=== PATIENT | male | born 1940 | race Caucasian/White ===

== ENCOUNTER 2016-10-01 15:27 | Inpatient (IN) | payer MEDICARE, BC ==
[2016-10-01] MEDS ORDERED: SODIUM CHLORIDE 0.9% IV STA (15:54)
[2016-10-01] MEDS ORDERED: ACYCLOVIR IV STA (15:54)
[2016-10-01] MEDS ORDERED: cefTRIAXone IV 1 gm in Dextros 50 ML IVPB ONE (16:10)
[2016-10-01] MEDS ORDERED: Vancomycin 1 GM 1 GM/250 ML BAG IVPB ONE (16:10)
--- NOTE | 2016-10-01 16:15 | C.PDOC ---
History Of Present Illness 75-year-old male, presents to the emergency department with complaints rash to upper forehead that started several days ago. Patient was seen by PMD who prescribed Valtrex, that he is taking without improvement, Patient also notes mild associated periorbital swelling. Denies fevers, nausea/vomiting or other complaints at this time. Time Seen by Provider: 10/01/16 15:38 Chief Complaint (Nursing): Eye Problem History Per: Patient History/Exam Limitations: no limitations Onset/Duration Of Symptoms: Days Past Medical History Reviewed: Historical Data, Nursing Documentation, Vital Signs Vital Signs: Last Vital Signs Temp 99.1 F 10/01/16 15:56 Pulse 92 H 10/01/16 15:56 Resp 20 10/01/16 15:56 BP 144/89 10/01/16 15:56 Pulse Ox 97 10/01/16 19:49 - Medical History PMH: HTN, Hypercholesterolemia Surgical History: Appendectomy Family History: States: No Known Family Hx - Social History Hx Alcohol Use: Yes Hx Substance Use: No - Immunization History Hx Tetanus Toxoid Vaccination: No Hx Influenza Vaccination: No Hx Pneumococcal Vaccination: Yes (04/2016) Review Of Systems Except As Marked, All Systems Reviewed And Found Negative. Constitutional: Negative for: Fever Gastrointestinal: Negative for: Nausea, Vomiting Skin: Positive for: Rash Physical Exam - Physical Exam Appears: Non-toxic, No Acute Distress Skin: Warm, Dry, Rash, Other (there is a vesicular rash w/ generalized distribution to right forehead) Nose: Normal Oral Mucosa: Moist Lips: Normal Appearing Neck: Normal ROM Cardiovascular: Rhythm Regular, No Murmur Respiratory: Normal Breath Sounds, No Accessory Muscle Use Extremity: Normal ROM Neurological/Psych: Oriented x3, Normal Speech ED Course And Treatment - Laboratory Results Result Diagrams: 10/01/16 16:14 10/01/16 16:14 O2 Sat by Pulse Oximetry: 97 Medical Decision Making Medical Decision Making: pt with periorbital cellultis, failue of outpt treatment. r/o orbital extention 746: labs unremakralbe. ct shows periorbital cellultis, no orbital extension. as pt failing outpt tx. will admit for iv acyclovira, and iv antibiotcs. dr pineda accepts, requests dr juarez on consult. case discussed with dr juarez Disposition - Disposition Disposition: HOSPITALIZED Disposition Time: 19:47 Condition: STABLE - Clinical Impression Clinical Impression: Periorbital cellulitis, Herpes zoster - Scribe Statement The provider has reviewed the documentation as recorded by the Scribe (Saad Mullins) All medical record entries made by the Scribe were at my direction and personally dictated by me. I have reviewed the chart and agree that the record accurately reflects my personal performance of the history, physical exam, medical decision making, and the department course for this patient. I have also personally directed, reviewed, and agree with the discharge instructions and disposition. Decision To Admit - Pt Status Changed To: Hospital Disposition Of: Inpatient - Admit Certification Admit to Inpatient:: After my assessment, the patient will require hospitalization for at least two midnights. This is because of the severity of symptoms shown, intensity of services needed, and/or the medical risk in this patient being treated as an outpatient. - InPatient: Physician Admission Certification: I certify that this patient requires 2 or more midnights of care for the following reason:: failure of outpt, needs iv antibiotics, signficant swelling, erythema - . Bed Request Type: Regular Admitting Physician: Sarina Pineda Patient Diagnosis: Periorbital cellulitis, Herpes zoster
[2016-10-01 16:21] LABS: BASO % 0.4 % (0.0-2.0); EOS # 0.1 K/uL (0.0-0.7); EOS % 0.7 % (0.0-4.0); HEMOGLOBIN 15.8 g/dL (12.0-18.0); LYMPH # 3.2 K/uL (1.0-4.3); LYMPH % 36.8 % (20.0-40.0); MEAN CELL VOLUME 95.3 fL (80.0-94.0); MEAN CORPUSCULAR HEMOGLOBIN 33.1 pg (27.0-31.0); MEAN CORPUSCULAR HGB CONC 34.7 g/dL (33.0-37.0); MEAN PLATELET VOLUME 7.4 fL (7.2-11.7); MONO # 1.5 K/uL (0.0-0.8); NEUT # 3.8 K/uL (1.8-7.0); NEUT % 44.1 % (50.0-75.0); NRBC % 0.1 % (0.0-2.0); RBC 4.77 Mil/uL (4.40-5.90); RED CELL DISTRIBUTION WIDTH 12.8 % (11.5-14.5); WHITE BLOOD COUNT 8.6 K/uL (4.8-10.8)
[2016-10-01 16:27] LABS: ALBUMIN 4.4 g/dL (3.5-5.0)
[2016-10-01 16:28] LABS: PROTHROMBIN TIME 11.1 SECONDS (9.7-12.2)
[2016-10-01 16:29] LABS: AST/SGOT 28 U/L (17-59); GFR AFRICAN-AMERICAN > 60; GFR NON-AFRICAN AMERICAN > 60
[2016-10-01 16:30] LABS: ALT/SGPT 60 U/L (21-72); BLOOD UREA NITROGEN 11 mg/dL (9-20); CALCIUM 9.3 mg/dl (8.6-10.4)
[2016-10-01 16:41] LABS: URINE BILIRUBIN NEGATIVE (NEGATIVE); URINE BLOOD 1+ (NEGATIVE); URINE CLARITY Clear (Clear); URINE COLOR Straw (YELLOW); URINE GLUCOSE (UA) 3+ mg/dL (Normal); URINE LEUKOCYTE ESTERASE NEG Leu/uL (Negative); URINE NITRATE NEGATIVE (NEGATIVE); URINE PROTEIN NEGATIVE (NEGATIVE); URINE UROBILINOGEN NORMAL mg/dL (0.2-1.0)
[2016-10-01] MEDS ORDERED: Iodixanol 320 MG/ML 200 ML BOTTLE IV ONE (17:23)
--- NOTE | 2016-10-01 19:42 | CT ---
EXAM: CT Orbits With Intravenous Contrast CLINICAL HISTORY: 75 years old, male; Signs and symptoms; Other: Rt periorbital swelling; Patient HX: Pt has shingles; Additional info: Right periorbital swelling TECHNIQUE: Axial computed tomography images of the orbits with intravenous contrast. This CT exam was performed using one or more of the following dose reduction techniques: automated exposure control, adjustment of the mA and/or kV according to patient size, and/or use of iterative reconstruction technique. Coronal and sagittal reformatted images were created and reviewed. CONTRAST: 100 mL of visipaque 320 administered intravenously. EXAM DATE/TIME: Exam ordered 10/01/2016 3:48 PM COMPARISON: No relevant prior studies available. FINDINGS: Orbits: Swelling is noted of the pre-septal soft tissues of the right orbit the intraconal fracture or chondral soft tissues of the right orbit are normal with the exception of the preseptal soft tissues. The intraconal extraconal soft tissues of the left orbit are normal. Sinuses: Unremarkable. No air-fluid levels. Bones/joints: No acute fracture. Soft tissues: Swelling is noted of the pre-septal soft tissues of the right orbit extending to include the soft tissues over the right temporal fossa and zygoma. Soft tissue swelling extends superiorly over the right frontoparietal bones Brain: Periventricular low density is noted extending into the burks radiata and centrum semiovale bilaterally. There is mild cerebral cortical atrophy. A 5 mm lacunar infarct is noted within the right thalamus. A 3 mm lacunar infarct is noted in the genu of the right internal capsule. Oropharynx: calcifications are noted of the lingual tonsils. IMPRESSION: 1. Preseptal cellulitis of the right orbit with soft tissue swelling extending posteriorly over the temporal fossa and zygoma and extending superiorly over the frontoparietal bone 2. Chronic microvascular ischemic change within the deep white matter structures. 3. 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
--- NOTE | 2016-10-01 22:45 | CP.PCM.HP ---
Past Patient History - Past Social History Smoking Status: Former Smoker - CARDIAC Hx Hypercholesterolemia: Yes Hx Hypertension: Yes - ENDOCRINE/METABOLIC Hx Diabetes Mellitus Type 2: Yes - HEMATOLOGICAL/ONCOLOGICAL Hx Shingles: Yes - PSYCHIATRIC Hx Substance Use: No - SURGICAL HISTORY Hx Appendectomy: Yes - ANESTHESIA Hx Anesthesia: Yes Hx Anesthesia Reactions: No Meds Allergies/Adverse Reactions: Allergies Allergy/AdvReac Type Severity Reaction Status Date / Time No Known Allergies Allergy Verified 10/01/16 15:52 Results - Vital Signs Recent Vital Signs: Last Vital Signs Temp 98.8 F 10/01/16 22:28 Pulse 90 10/01/16 22:28 Resp 16 10/01/16 22:28 BP 157/75 H 10/01/16 22:28 Pulse Ox 97 10/01/16 22:28 - Labs Result Diagrams: 10/01/16 16:14 10/01/16 16:14
[2016-10-02] MEDS ORDERED: Acyclovir 500 MG in Sodium Chloride 0.9% 100 ML IV SCH (04:30)
[2016-10-02] MEDS: Pantoprazole 40 mg EC Tab PO SCH (10:32)
[2016-10-02] MEDS: Enoxaparin 40 mg Syringe SC SCH (10:33)
[2016-10-02] MEDS: Metoprolol Succinate 100 mg XL Tab PO SCH (10:33)
[2016-10-02] MEDS: Tobramycin/Dexamethasone OPHT OINT OD SCH (17:30)
--- NOTE | 2016-10-02 17:47 | CP.PCM.PN ---
Subjective - Date & Time of Evaluation Date of Evaluation: 10/02/16 Time of Evaluation: 12:20 - Subjective Subjective: clinically same Objective - Vital Signs/Intake and Output Vital Signs (last 24 hours): Temp Pulse Resp BP Pulse Ox 97.9 F 90 20 114/71 95 10/02/16 15:39 10/02/16 15:39 10/02/16 15:39 10/02/16 15:39 10/02/16 15:39 Intake and Output: 10/02/16 10/02/16 06:59 18:59 Intake Total 120 720 Balance 120 720 - Medications Medications: Current Medications Allopurinol (Zyloprim) 100 mg PO DAILY [facility] Last Admin: 10/02/16 10:33 Dose: 100 mg Amlodipine Besylate (Norvasc) 10 mg PO DAILY [facility] Last Admin: 10/02/16 10:32 Dose: 10 mg Enoxaparin Sodium (Lovenox) 40 mg SC DAILY [facility] Last Admin: 10/02/16 10:33 Dose: 40 mg Glimepiride (Amaryl) 4 mg PO BID [facility] Last Admin: 10/02/16 17:30 Dose: 4 mg Vancomycin HCl 1 gm/ Sodium (Chloride) 250 mls @ 166.7 mls/hr IVPB Q24H [facility] Last Admin: 10/02/16 17:29 Dose: 166.7 mls/hr Acyclovir 700 mg/ Sodium (Chloride) 100 mls @ 100 mls/hr IVPB Q8H [facility] Last Admin: 10/02/16 11:44 Dose: 100 mls/hr Ceftriaxone Sodium 1 gm/ (Sodium Chloride) 100 mls @ 200 mls/hr IVPB Q12 [facility] Last Admin: 10/02/16 10:31 Dose: 200 mls/hr Metformin HCl (Glucophage) 1,000 mg PO BID [facility] Last Admin: 10/02/16 17:30 Dose: 1,000 mg Metoprolol Succinate (Toprol Xl) 100 mg PO DAILY [facility] Last Admin: 10/02/16 10:33 Dose: 100 mg Pantoprazole Sodium (Protonix Ec Tab) 40 mg PO DAILY [facility] Last Admin: 10/02/16 10:32 Dose: 40 mg Pneumococcal Polyvalent Vaccine (Pneumovax 23 Vaccine) 0.5 ml IM .ONCE ONE Stop: 10/04/16 00:01 Rosuvastatin Calcium (Crestor) 5 mg PO HS [facility] Sitagliptin Phosphate (Januvia) 100 mg PO DAILY [facility] Last Admin: 10/02/16 10:32 Dose: 100 mg Tobramycin/Dexamethasone (Tobradex 0.3%-0.1% Opht Oint) 0 appl OD TID [facility] Stop: 10/06/16 23:59 Last Admin: 10/02/16 17:30 Dose: 1 applic - Labs Labs: PT 11.1 SECONDS (9.7-12.2) 10/01/16 16:14 INR 1.0 10/01/16 16:14 APTT 34 SECONDS (21-34) 10/01/16 16:14 - Constitutional Appears: Well - Head Exam Head Exam: ATRAUMATIC, NORMAL INSPECTION, NORMOCEPHALIC - Eye Exam Eye Exam: EOMI, Normal appearance, PERRL Pupil Exam: NORMAL ACCOMODATION, PERRL - ENT Exam ENT Exam: Mucous Membranes Moist, Normal Exam - Neck Exam Neck Exam: Full ROM, Normal Inspection. absent: Lymphadenopathy - Respiratory Exam Respiratory Exam: Decreased Breath Sounds - Cardiovascular Exam Cardiovascular Exam: REGULAR RHYTHM, +S1, +S2 - GI/Abdominal Exam GI & Abdominal Exam: Soft, Diminished Bowel Sounds - Rectal Exam Rectal Exam: Deferred
--- NOTE | 2016-10-02 21:04 | CP.PCM.CON ---
History of Present Illness - History of Present Illness History of Present Illness: Patient is 75yr old male with h/o of htn,hypercholesrolemia admitted with rash present on forehead for several days and was given valtrex by PMD for treatment but he developed cellulitis over the right eye and right forehead rash which brought him to hospital .His eye is closed secondary to swelling and redness Review of Systems - Constitutional Constitutional: Headache. absent: As Per HPI, Anorexia, Chills, Daytime Sleepiness, Excessive Sweating, Fatigue, Fever, Frequent Falls, Increased Appetite, Lethargy, Malaise, Night Sweats, Snoring, Sleep Apnea, Weight Gain, Weight Loss, Weakness, Other - EENT Eyes: Irritation, Pain Ears: absent: As Per HPI, Decreased Hearing, Ear Discharge, Ear Pain, Tinnitus, Abnormal Hearing, Disequilibrium, Dizziness, Other Nose/Mouth/Throat: absent: As Per HPI, Epistaxis, Nasal Congestion, Nasal Discharge, Nasal Obstruction, Nasal Trauma, Nose Pain, Post Nasal Drip, Sinus Pain, Sinus Pressure, Bleeding Gums, Change in Voice, Dental Pain, Dry Mouth, Dysphagia, Halitosis, Hoarsness, Lip Swelling, Mouth Lesions, Mouth Pain, Odynophagia, Sore Throat, Throat Swelling, Tongue Swelling, Facial Pain, Neck Pain, Neck Mass, Other Additional comments: patient has rash on right forehead and right eye swelling,and not able to see , redness over the forehead and orbit - Cardiovascular Cardiovascular: absent: As Per HPI, Acrocyanosis, Chest Pain, Chest Pain at Rest , Chest Pain with Activity, Claudication, Diaphoresis, Dyspnea, Dyspnea on Exertion, Edema, Irregular Heart Rhythm, Pain Radiating to Arm/Neck/Jaw, Leg Edema, Leg Ulcers, Lightheadedness, Orthopnea, Palpitations, Paroxysmal Nocturnal Dyspnea, Pedal Edema, Radiating Pain, Rapid Heart Rate, Slow Heart Rate, Syncope, Other - Respiratory Respiratory: absent: As Per HPI, Cough, Dyspnea, Hemoptysis, Dyspnea on Exertion , Wheezing, Snoring, Stridor, Pain on Inspiration, Chest Congestion, Excessive Mucous Production, Change in Mucous Color, Pain with Coughing, Other - Gastrointestinal Gastrointestinal: absent: As Per HPI, Abdominal Pain, Belching, Bloating, Change in Bowel Habits, Change in Stool Character, Coffee Ground Emesis, Constipation, Cramping, Diarrhea, Dyspepsia, Dysphagia, Early Satiety, Excessive Flatus, Fecal Incontinence, Heartburn, Hematemesis, Hematochezia, Loose Stools, Melena, Nausea, Odynophagia, Temesmus, Vomiting, Other - Genitourinary Genitourinary: absent: As Per HPI, Change in Urinary Stream, Difficulty Urinating, Dysuria, Flank Pain, Hematuria, Pyuria, Nocturia, Urinary Incontinence, Urinary Frequency, Urinary Hesitance, Urinary Urgency, Voiding Freq/Small Amts, Freq UTI, Hx Renal/Bladder Calculi, Hx /Renal Surgery, Bladder Distension, Other - Integumentary Integumentary: Rash, Skin Pain Additional comments: right forehead Past Patient History - Past Medical History & Family History Past Medical History?: Yes - Past Social History Smoking Status: Former Smoker - CARDIAC Hx Hypercholesterolemia: Yes Hx Hypertension: Yes - ENDOCRINE/METABOLIC Hx Diabetes Mellitus Type 2: Yes - HEMATOLOGICAL/ONCOLOGICAL Hx Shingles: Yes - MUSCULOSKELETAL/RHEUMATOLOGICAL Hx Falls: No - PSYCHIATRIC Hx Substance Use: No - SURGICAL HISTORY Hx Appendectomy: Yes - ANESTHESIA Hx Anesthesia: Yes Hx Anesthesia Reactions: No Meds Home Medications: Home Medication List Medication Instructions Recorded Confirmed Type Cephalexin [cephalexin] 500 mg PO TID #15 cap 10/04/16 Rx Tobramycin/Dexamethasone [TobraDex 1 applic OD TID #1 tub 10/04/16 Rx 0.3%-0.1% Opht Oint] Valacyclovir HCl [Valtrex] 1 gm PO Q8 #0 10/04/16 10/01/16 Rx Allergies/Adverse Reactions: Allergies Allergy/AdvReac Type Severity Reaction Status Date / Time No Known Allergies Allergy Verified 10/01/16 15:52 - Medications Medications: Current Medications Allopurinol (Zyloprim) 100 mg PO DAILY [facility] Last Admin: 10/02/16 10:33 Dose: 100 mg Amlodipine Besylate (Norvasc) 10 mg PO DAILY [facility] Last Admin: 10/02/16 10:32 Dose: 10 mg Enoxaparin Sodium (Lovenox) 40 mg SC DAILY [facility] Last Admin: 10/02/16 10:33 Dose: 40 mg Glimepiride (Amaryl) 4 mg PO BID [facility] Last Admin: 10/02/16 17:30 Dose: 4 mg Vancomycin HCl 1 gm/ Sodium (Chloride) 250 mls @ 166.7 mls/hr IVPB Q24H [facility] Last Admin: 10/02/16 17:29 Dose: 166.7 mls/hr Acyclovir 700 mg/ Sodium (Chloride) 100 mls @ 100 mls/hr IVPB Q8H [facility] Last Admin: 10/02/16 20:16 Dose: 100 mls/hr Ceftriaxone Sodium 1 gm/ (Sodium Chloride) 100 mls @ 200 mls/hr IVPB Q12 [facility] Last Admin: 10/02/16 10:31 Dose: 200 mls/hr Metformin HCl (Glucophage) 1,000 mg PO BID [facility] Metoprolol Succinate (Toprol Xl) 100 mg PO DAILY [facility] Last Admin: 10/02/16 10:33 Dose: 100 mg Pantoprazole Sodium (Protonix Ec Tab) 40 mg PO DAILY [facility] Last Admin: 10/02/16 10:32 Dose: 40 mg Pneumococcal Polyvalent Vaccine (Pneumovax 23 Vaccine) 0.5 ml IM .ONCE ONE Stop: 10/04/16 00:01 Rosuvastatin Calcium (Crestor) 5 mg PO HS [facility] Sitagliptin Phosphate (Januvia) 100 mg PO DAILY [facility] Last Admin: 10/02/16 10:32 Dose: 100 mg Tobramycin/Dexamethasone (Tobradex 0.3%-0.1% Opht Oint) 0 appl OD TID [facility] Stop: 10/06/16 23:59 Last Admin: 10/02/16 17:30 Dose: 1 applic Physical Exam - Head Exam Head Exam: ATRAUMATIC, NORMOCEPHALIC Additional comments: scabs and lesion present on the right forehead extending to parietal area with redness and swelling in periorbital area with eye closed - Eye Exam Eye Exam: Periorbital swelling Additional comments: Right eye is closed secondary to swelling ,left eye is unremarkable - ENT Exam ENT Exam: Normal Exam - Neck Exam Neck exam: Positive for: Normal Inspection - Respiratory Exam Respiratory Exam: Clear to Auscultation Bilateral, NORMAL BREATHING PATTERN. absent: Accessory Muscle Use, Chest Wall Tenderness, Decreased Breath Sounds, Prolonged Expiratory Phase, Rales, Rhonchi, Wheezes, Respiratory Distress, Stridor - Cardiovascular Exam Cardiovascular Exam: REGULAR RHYTHM, RRR. absent: Bradycardia, Tachycardia, Clicks, Diastolic murmur, Gallop, Irregular Rhythm, JVD, Rubs, +S1, +S2, +S4, Systolic Murmur - GI/Abdominal Exam GI & Abdominal Exam: Normal Bowel Sounds, Soft. absent: Bruit, Diminished Bowel Sounds, Distended, Firm, Guarding, Hernia, Hyperactive Bowel Sounds, Hypoactive Bowel Sounds, Mass, Organomegaly, Pulsatile Mass, Rebound, Rigid, Tenderness - Extremities Exam Extremities exam: Positive for: normal inspection. Negative for: calf tenderness, full ROM, joint swelling, normal capillary refill, pedal edema, tenderness, pedal pulses present - Neurological Exam Neurological exam: CN II-XII Intact - Psychiatric Exam Psychiatric exam: Normal Affect Results - Vital Signs Recent Vital Signs: Last Vital Signs Temp 97.9 F 10/02/16 15:39 Pulse 90 10/02/16 15:39 Resp 20 10/02/16 15:39 BP 114/71 10/02/16 15:39 Pulse Ox 95 10/02/16 15:39 - Labs Result Diagrams: 10/03/16 08:01 10/03/16 08:01 Labs: Laboratory Results - last 24 hr 10/02/16 10/02/16 10/02/16 07:23 11:27 16:28 POC Glucose (mg/dL) 239 H 289 H 196 H - Imaging and Cardiology CT scan -facial bone Status: Report reviewed by me Assessment & Plan (1) Herpes zoster Status: Acute Comment: Patient is on Acyclovir and iv antibiotics due to cellulitis and periorbital edema and also facial ct noted (2) Periorbital cellulitis Status: Acute
--- NOTE | 2016-10-03 01:09 | CON ---
DATE: 10/02/2016 HISTORY OF PRESENT ILLNESS: The patient is a 75-year-old male with a history of a rash developing along the scalp on the right side a few days ago. He was treated by his primary care with oral Valtrex without any improvement, was admitted yesterday for IV treatment and worsening symptoms. He reports today that his eye feels better. PAST MEDICAL HISTORY: Significant for hypertension and high cholesterol. His ocular history is significant for cataract extraction in both eyes. PHYSICAL EXAMINATION HEENT: Ocular exam, his vision is 20/40 near in both eyes. On external exam, he has edema of both right upper and lower lid with vesicles and vesicles also extend on his forehead. On the right side, his cornea, conjunctiva and anterior chamber are clear in both eyes. He has artificial lenses in both eyes. His are within normal limits. ASSESSMENT AND PLAN: The patient has herpes zoster, periorbital cellulitis on the right side. He has no orbital signs of infection. Based on the patient, he reports that he is feeling better today than yesterday. He is continuing improvement. He should be discharged on oral Valtrex. I would keep him on 1 mg p.o. t.i.d. until he follows up with ophthalmology and they can reduce his dose. I also would recommend TobraDex ointment for his eyelids and his forehead with the lesion. This can be placed 3 times a day. If there are any questions, please contact the office . Again, if you any questions, just contact me. Phillip Goodman MD
[2016-10-03 08:08] LABS: BASO % 0.5 % (0.0-2.0); EOS # 0.1 K/uL (0.0-0.7); EOS % 1.6 % (0.0-4.0); HEMOGLOBIN 14.9 g/dL (12.0-18.0); LYMPH # 2.8 K/uL (1.0-4.3); LYMPH % 39.9 % (20.0-40.0); MEAN CELL VOLUME 95.5 fL (80.0-94.0); MEAN CORPUSCULAR HEMOGLOBIN 32.5 pg (27.0-31.0); MEAN PLATELET VOLUME 7.4 fL (7.2-11.7); MONO # 0.8 K/uL (0.0-0.8); MONO % 11.3 % (0.0-10.0); NEUT # 3.3 K/uL (1.8-7.0); NEUT % 46.7 % (50.0-75.0); NRBC % 0.1 % (0.0-2.0); RBC 4.58 Mil/uL (4.40-5.90); RED CELL DISTRIBUTION WIDTH 12.5 % (11.5-14.5); WHITE BLOOD COUNT 7.1 K/uL (4.8-10.8)
[2016-10-03 08:28] LABS: ALBUMIN 3.8 g/dL (3.5-5.0)
[2016-10-03 08:30] LABS: GFR AFRICAN-AMERICAN > 60; GFR NON-AFRICAN AMERICAN > 60
[2016-10-03 08:31] LABS: ALT/SGPT 52 U/L (21-72); AST/SGOT 32 U/L (17-59); BLOOD UREA NITROGEN 11 mg/dL (9-20); CALCIUM 8.4 mg/dl (8.6-10.4)
[2016-10-03] MEDS: Enoxaparin 40 mg Syringe SC SCH (10:04)
[2016-10-03] MEDS: Metoprolol Succinate 100 mg XL Tab PO SCH (10:04)
[2016-10-03] MEDS: Pantoprazole 40 mg EC Tab PO SCH (10:04)
[2016-10-03] MEDS: Tobramycin/Dexamethasone OPHT OINT OD SCH ×3 (10:05→17:20)
[2016-10-03 15:43] VITALS: RESP 20; O2SAT 96
--- NOTE | 2016-10-03 17:42 | CP.PCM.PN ---
Subjective - Date & Time of Evaluation Date of Evaluation: 10/03/16 Time of Evaluation: 03:00 - Subjective Subjective: Patient says his eye swelling is little better ,he wants to take a shower, denies pain at this time Objective - Vital Signs/Intake and Output Vital Signs (last 24 hours): Temp Pulse Resp BP Pulse Ox 98.1 F 101 H 20 152/74 H 96 10/03/16 15:38 10/03/16 15:38 10/03/16 15:38 10/03/16 15:38 10/03/16 15:38 Intake and Output: 10/03/16 10/03/16 06:59 18:59 Intake Total 750 Balance 750 - Medications Medications: Current Medications Allopurinol (Zyloprim) 100 mg PO DAILY [facility] Last Admin: 10/03/16 10:04 Dose: 100 mg Amlodipine Besylate (Norvasc) 10 mg PO DAILY [facility] Last Admin: 10/03/16 10:04 Dose: 10 mg Enoxaparin Sodium (Lovenox) 40 mg SC DAILY [facility] Last Admin: 10/03/16 10:04 Dose: 40 mg Glimepiride (Amaryl) 4 mg PO BID [facility] Last Admin: 10/03/16 17:20 Dose: 4 mg Vancomycin HCl 1 gm/ Sodium (Chloride) 250 mls @ 166.7 mls/hr IVPB Q24H [facility] Last Admin: 10/03/16 17:19 Dose: 166.7 mls/hr Acyclovir 700 mg/ Sodium (Chloride) 100 mls @ 100 mls/hr IVPB Q8H [facility] Last Admin: 10/03/16 14:51 Dose: 100 mls/hr Ceftriaxone Sodium 1 gm/ (Sodium Chloride) 100 mls @ 200 mls/hr IVPB Q12 [facility] Last Admin: 10/03/16 10:03 Dose: 200 mls/hr Metformin HCl (Glucophage) 1,000 mg PO BID [facility] Metoprolol Succinate (Toprol Xl) 100 mg PO DAILY [facility] Last Admin: 10/03/16 10:04 Dose: 100 mg Pantoprazole Sodium (Protonix Ec Tab) 40 mg PO DAILY [facility] Last Admin: 10/03/16 10:04 Dose: 40 mg Pneumococcal Polyvalent Vaccine (Pneumovax 23 Vaccine) 0.5 ml IM .ONCE ONE Stop: 10/04/16 00:01 Rosuvastatin Calcium (Crestor) 5 mg PO HS [facility] Last Admin: 10/02/16 21:37 Dose: 5 mg Sitagliptin Phosphate (Januvia) 100 mg PO DAILY [facility] Last Admin: 10/03/16 10:04 Dose: 100 mg Tobramycin/Dexamethasone (Tobradex 0.3%-0.1% Opht Oint) 0 appl OD TID [facility] Stop: 10/06/16 23:59 Last Admin: 10/03/16 17:20 Dose: 1 applic - Labs Labs: 10/03/16 08:01 10/03/16 08:01 PT 11.1 SECONDS (9.7-12.2) 10/01/16 16:14 INR 1.0 10/01/16 16:14 APTT 34 SECONDS (21-34) 10/01/16 16:14 - Constitutional Appears: No Acute Distress - Head Exam Head Exam: ATRAUMATIC, NORMOCEPHALIC - Eye Exam Additional comments: right swelling and redness and warmth is still there but he is opening little bit 10 degrees of his right eye,no problem or redness in left eye - ENT Exam ENT Exam: Mucous Membranes Moist - Neck Exam Neck Exam: Normal Inspection - Respiratory Exam Respiratory Exam: Clear to Ausculation Bilateral, NORMAL BREATHING PATTERN - Cardiovascular Exam Cardiovascular Exam: REGULAR RHYTHM - GI/Abdominal Exam GI & Abdominal Exam: Normal Bowel Sounds - Extremities Exam Extremities Exam: Normal Inspection Assessment and Plan (1) Herpes zoster Status: Acute (2) Periorbital cellulitis Status: Acute
--- NOTE | 2016-10-03 20:21 | CP.PCM.PN ---
Subjective - Date & Time of Evaluation Date of Evaluation: 10/03/16 Objective - Vital Signs/Intake and Output Vital Signs (last 24 hours): Temp Pulse Resp BP Pulse Ox 98.1 F 101 H 20 152/74 H 96 10/03/16 15:38 10/03/16 15:38 10/03/16 15:38 10/03/16 15:38 10/03/16 15:38 - Medications Medications: Current Medications Allopurinol (Zyloprim) 100 mg PO DAILY [facility] Last Admin: 10/03/16 10:04 Dose: 100 mg Amlodipine Besylate (Norvasc) 10 mg PO DAILY [facility] Last Admin: 10/03/16 10:04 Dose: 10 mg Enoxaparin Sodium (Lovenox) 40 mg SC DAILY [facility] Last Admin: 10/03/16 10:04 Dose: 40 mg Glimepiride (Amaryl) 4 mg PO BID [facility] Last Admin: 10/03/16 17:20 Dose: 4 mg Vancomycin HCl 1 gm/ Sodium (Chloride) 250 mls @ 166.7 mls/hr IVPB Q24H [facility] Last Admin: 10/03/16 17:19 Dose: 166.7 mls/hr Acyclovir 700 mg/ Sodium (Chloride) 100 mls @ 100 mls/hr IVPB Q8H [facility] Last Admin: 10/03/16 19:29 Dose: 100 mls/hr Ceftriaxone Sodium 1 gm/ (Sodium Chloride) 100 mls @ 200 mls/hr IVPB Q12 [facility] Last Admin: 10/03/16 10:03 Dose: 200 mls/hr Metformin HCl (Glucophage) 1,000 mg PO BID [facility] Metoprolol Succinate (Toprol Xl) 100 mg PO DAILY [facility] Last Admin: 10/03/16 10:04 Dose: 100 mg Pantoprazole Sodium (Protonix Ec Tab) 40 mg PO DAILY [facility] Last Admin: 10/03/16 10:04 Dose: 40 mg Pneumococcal Polyvalent Vaccine (Pneumovax 23 Vaccine) 0.5 ml IM .ONCE ONE Stop: 10/04/16 00:01 Rosuvastatin Calcium (Crestor) 5 mg PO HS [facility] Last Admin: 10/02/16 21:37 Dose: 5 mg Sitagliptin Phosphate (Januvia) 100 mg PO DAILY [facility] Last Admin: 10/03/16 10:04 Dose: 100 mg Tobramycin/Dexamethasone (Tobradex 0.3%-0.1% Opht Oint) 0 appl OD TID [facility] Stop: 10/06/16 23:59 Last Admin: 10/03/16 17:20 Dose: 1 applic - Labs Labs: 10/03/16 08:01 10/03/16 08:01 PT 11.1 SECONDS (9.7-12.2) 10/01/16 16:14 INR 1.0 10/01/16 16:14 APTT 34 SECONDS (21-34) 10/01/16 16:14
[2016-10-04] MEDS ORDERED: Pneumococcal 23-Valent Vaccine IM ONE
[2016-10-04 08:37] VITALS: BP 135/79; PULSE 79; TEMP 97.5
[2016-10-04] MEDS: Tobramycin/Dexamethasone OPHT OINT OD SCH (10:13)
[2016-10-04] MEDS: Metoprolol Succinate 100 mg XL Tab PO SCH (10:13)
[2016-10-04] MEDS: Enoxaparin 40 mg Syringe SC SCH (10:13)
[2016-10-04] MEDS: Pantoprazole 40 mg EC Tab PO SCH (10:13)
--- NOTE | 2016-10-04 12:59 | CP.PCM.PN ---
Subjective - Date & Time of Evaluation Date of Evaluation: 10/04/16 Time of Evaluation: 12:58 Objective - Vital Signs/Intake and Output Vital Signs (last 24 hours): Temp Pulse Resp BP Pulse Ox 97.5 F L 79 20 135/79 96 10/04/16 08:36 10/04/16 08:36 10/04/16 08:36 10/04/16 08:36 10/04/16 08:36 Intake and Output: 10/04/16 10/04/16 06:59 18:59 Intake Total 850 Balance 850 - Medications Medications: Current Medications Allopurinol (Zyloprim) 100 mg PO DAILY [facility] Last Admin: 10/04/16 10:13 Dose: 100 mg Amlodipine Besylate (Norvasc) 10 mg PO DAILY [facility] Last Admin: 10/04/16 10:13 Dose: 10 mg Enoxaparin Sodium (Lovenox) 40 mg SC DAILY [facility] Last Admin: 10/04/16 10:13 Dose: 40 mg Glimepiride (Amaryl) 4 mg PO BID [facility] Last Admin: 10/04/16 10:12 Dose: 4 mg Vancomycin HCl 1 gm/ Sodium (Chloride) 250 mls @ 166.7 mls/hr IVPB Q24H [facility] Last Admin: 10/03/16 17:19 Dose: 166.7 mls/hr Acyclovir 700 mg/ Sodium (Chloride) 100 mls @ 100 mls/hr IVPB Q8H [facility] Last Admin: 10/04/16 11:50 Dose: 100 mls/hr Ceftriaxone Sodium 1 gm/ (Sodium Chloride) 100 mls @ 200 mls/hr IVPB Q12 [facility] Last Admin: 10/04/16 10:12 Dose: 200 mls/hr Metformin HCl (Glucophage) 1,000 mg PO BID [facility] Last Admin: 10/04/16 10:13 Dose: 1,000 mg Metoprolol Succinate (Toprol Xl) 100 mg PO DAILY [facility] Last Admin: 10/04/16 10:13 Dose: 100 mg Pantoprazole Sodium (Protonix Ec Tab) 40 mg PO DAILY [facility] Last Admin: 10/04/16 10:13 Dose: 40 mg Rosuvastatin Calcium (Crestor) 5 mg PO [facility] Last Admin: 10/03/16 21:07 Dose: 5 mg Sitagliptin Phosphate (Januvia) 100 mg PO DAILY [facility] Last Admin: 10/04/16 10:12 Dose: 100 mg Tobramycin/Dexamethasone (Tobradex 0.3%-0.1% Opht Oint) 0 appl OD TID [facility] Stop: 10/06/16 23:59 Last Admin: 10/04/16 10:13 Dose: 1 applic - Labs Labs: 10/03/16 08:01 10/03/16 08:01 PT 11.1 SECONDS (9.7-12.2) 10/01/16 16:14 INR 1.0 10/01/16 16:14 APTT 34 SECONDS (21-34) 10/01/16 16:14
[2016-10-04] MEDS ORDERED: Influenza Virus Vaccine 45 mcg/0.5 ml Syr IM ONE (14:00)
== END 2016-10-04 14:10 | disposition home or self-care (01) | DRG 596 ==
LOC: C.ER 15:27 → C.9E 20:04 → C.5T 21:45
PROVIDERS: ADMIT Internal Medicine Nephrology; ATTEND Internal Medicine Nephrology
DX: B02.9 Zoster without complications (principal); L03.213 Periorbital cellulitis; E11.9 Type 2 diabetes mellitus without complications; E78.00 Pure hypercholesterolemia, unspecified; I10 Essential (primary) hypertension; Z87.891 Personal history of nicotine dependence; Z79.84 Long term (current) use of oral hypoglycemic drugs